=== PATIENT | female | born 1945 | race Caucasian/White ===

== ENCOUNTER 2018-02-11 20:45 | Emergency (ER) | payer MEDICARE, MEDICAID ==
[~2018-02-11] VITALS: Ht 167.6 cm; Wt 85.3 kg
[2018-02-11 21:20] VITALS: Ht 167.6 cm; Wt 85.3 kg
[2018-02-11 23:58] LABS: CALCIUM 8.9 mg/dL (8.5-10.1); CARBON DIOXIDE 22.3 mmol/L (21-32); CREATININE SERUM 1.2 mg/dL (0.6-1.0); POTASSIUM SERUM 3.7 mmol/L (3.5-5.1)
[2018-02-12] LABS: BASOPHIL % 0.5 % (0-2)
[2018-02-12 00:02] LABS: ALBUMIN 3.4 g/dL (3.4-5.0); BILIRUBIN TOTAL 0.9 mg/dL (0.20-1.00); PLATELET COUNT 102 x10^3mcL (130-400); RED CELL DISTRIBUTION WIDTH 15.2 % (11.5-14.5); TOTAL PROTEIN, SERUM 7.8 g/dL (6.4-8.2)
[2018-02-12 02:11] VITALS: BP 116/66
[2018-02-12 03:25] LABS: UA SPECIFIC GRAVITY >=1.030 (1.005-1.035); microscopic required? YES; urine erythrocyte 2+ (NEGATIVE)
== END 2018-02-12 02:11 | disposition home or self-care (01) ==
LOC: ED 20:45
PROVIDERS: Emergency Medicine
DX: K43.2 Incisional hernia without obstruction or gangrene (principal); N18.3 Chronic kidney disease, stage 3 (moderate); D64.9 Anemia, unspecified; E66.01 Morbid (severe) obesity due to excess calories; Z90.49 Acquired absence of other specified parts of digestive tract; Z98.890 Other specified postprocedural states
CPT/HCPCS: J2405; J3010; J7030

== ENCOUNTER 2018-04-01 17:07 | Emergency (ER) | payer BC, MEDICAID ==
[~2018-04-01] VITALS: Ht 167.6 cm; Wt 83.0 kg
[2018-04-01 17:13] VITALS: Ht 167.6 cm; Wt 83.0 kg
[2018-04-01 17:46] LABS: BASOPHIL % 0.7 % (0-2)
[2018-04-01 17:48] LABS: PLATELET COUNT 125 x10^3mcL (130-400); RED CELL DISTRIBUTION WIDTH 16.5 % (11.5-14.5)
[2018-04-01 17:55] LABS: CALCIUM 8.9 mg/dL (8.5-10.1); CARBON DIOXIDE 25.3 mmol/L (21-32); CREATININE SERUM 1.2 mg/dL (0.6-1.0); POTASSIUM SERUM 3.7 mmol/L (3.5-5.1)
[2018-04-01 17:57] LABS: ALBUMIN 3.5 g/dL (3.4-5.0); BILIRUBIN TOTAL 0.62 mg/dL (0.20-1.00); TOTAL PROTEIN, SERUM 8.1 g/dL (6.4-8.2)
[2018-04-01 21:03] VITALS: BP 134/76
== END 2018-04-01 21:03 | disposition home or self-care (01) ==
LOC: ED 17:07
PROVIDERS: Emergency Medicine
DX: N93.9 Abnormal uterine and vaginal bleeding, unspecified (principal); Z90.49 Acquired absence of other specified parts of digestive tract; Z98.890 Other specified postprocedural states
CPT/HCPCS: 36415; Q0092

== ENCOUNTER 2018-06-30 21:44 | Emergency (ER) | payer BC, MEDICAID ==
[~2018-06-30] VITALS: Ht 160 cm; Wt 86.2 kg
[2018-06-30 21:50] VITALS: Ht 160 cm; Wt 86.2 kg
[2018-06-30 22:17] LABS: BASOPHIL % 1.6 % (0-2)
[2018-06-30 22:18] LABS: PLATELET COUNT 108 x10^3mcL (130-400); RED CELL DISTRIBUTION WIDTH 17.7 % (11.5-14.5)
[2018-06-30 22:26] LABS: CALCIUM 8.6 mg/dL (8.5-10.1); CARBON DIOXIDE 24.6 mmol/L (21-32); CREATININE SERUM 1.2 mg/dL (0.6-1.0); POTASSIUM SERUM 3.7 mmol/L (3.5-5.1)
[2018-06-30 22:30] LABS: BILIRUBIN TOTAL 0.74 mg/dL (0.20-1.00); TOTAL PROTEIN, SERUM 7.6 g/dL (6.4-8.2)
[2018-06-30 22:35] LABS: ALBUMIN 3.3 g/dL (3.4-5.0)
[2018-07-01 01:25] VITALS: BP 118/77
== END 2018-07-01 01:25 | disposition home or self-care (01) ==
LOC: ED 21:44
PROVIDERS: Emergency Medicine
DX: K59.00 Constipation, unspecified (principal); N39.0 Urinary tract infection, site not specified; Z90.49 Acquired absence of other specified parts of digestive tract; Z98.890 Other specified postprocedural states
CPT/HCPCS: J2270; J2405; J7030

== ENCOUNTER 2018-09-14 14:21 | Emergency (ER) | payer BC, MEDICAID ==
[~2018-09-14] VITALS: Ht 177.8 cm; Wt 87.1 kg
[2018-09-14 18:48] VITALS: BP 130/72
== END 2018-09-14 18:48 | disposition home or self-care (01) ==
LOC: ED 14:21
DX: R05 Cough (principal); L29.9 Pruritus, unspecified; Z98.890 Other specified postprocedural states; Z90.49 Acquired absence of other specified parts of digestive tract